=== PATIENT | female | born 1980 | race Caucasian/White ===

== ENCOUNTER 2016-08-20 17:20 | Outpatient (CLI) | payer BC ==
[2016-08-20 19:13] LABS: ALT (SGPT) 11 U/L (0-55); AST (SGOT) 12 U/L (5-34); Alkaline Phosphatase 74 U/L (40-150); Anion Gap 15 mmol/L (10-20); BUN (Urea Nitrogen) 10 mg/dL (7.0-18.7); Bilirubin, Total 0.3 mg/dL (0.2-1.2); Calc. Creatinine Clearance 0 mL/min (70-130); Carbon Dioxide 23 mmol/L (22-29); Chloride 106 mmol/L (98-107); Estimated GFR-MDRD 88; Globulin 2.8 g/dL (2.4-3.5); Protein, Total 7.1 g/dL (6.0-8.3)
[2016-08-20 19:36] LABS: #Basophils 0.1 thou/uL (0.0-0.2); #Eosinphils 0.2 thou/uL (0.0-0.7); #Lymphocytes 2.1 thou/uL (1.20-3.40); #Monocytes 0.6 thou/uL (0.11-0.59); #Neutrophils 4.7 thou/uL (1.40-6.50); %Basophils 1.4 % (0.0-1.0); %Eosinophils 2.2 % (0.0-10.0); %Lymphocytes 26.6 % (21.0-51.0); %Monocytes 8.2 % (0.0-10.0); Mean Platelet Volume 7.9 fL (7.4-10.4); Red Blood Cell (RBC) Count 4.93 mill/uL (4.20-5.40); White Blood Cell (WBC) Count 7.7 thou/uL (4.8-10.8)
[2016-08-20 19:47] LABS: Hemoglobin A1c 5.4 % (4.0-6.0)
== END 2016-08-20 17:21 | disposition home or self-care (01) ==
LOC: NAV SJFMSP 17:20
PROVIDERS: ATTEND Family Medicine
DX: R11.0 Nausea (principal); R51 Headache; R55 Syncope and collapse; R53.83 Other fatigue; R68.89 Other general symptoms and signs; Z98.84 Bariatric surgery status
CPT/HCPCS: 80053; 82306; 82607; 82746; 83036; 84439; 84443; 84702; 85025

== ENCOUNTER 2017-01-12 12:57 | Outpatient (CLI) | payer BC ==
--- NOTE | 2017-01-12 14:11 | ULT ---
PELVIC ULTRASOUND WITH DOPPLER: (TRANSABDOMINAL, TRANSVAGINAL, TRUJILLO SCALE, COLOR FLOW, AND SPECTRAL DOPPLER) DATE: 01/12/17 HISTORY: Left lower quadrant pain. FINDINGS: The uterus measures 12.7 x 4.0 x 5.7 cm without focal mass or endometrial fluid. The endometrium caitlyn sures 4.0 mm in thickness. No uterine mass or endometrial fluid is seen. The right ovary measures 3.2 x 1.8 x 2.8 cm. The left ovary measures 3.0 x 1.6 x 2.7 cm. There is a 9.0 mm cyst in the left ovary. Flow is not detected to the right ovary. Small amount of flow is dete cted to the left ovary. This is secondary to positioning and the large body habitus of the patient. No free fluid is seen in the cul-de-sac. IMPRESSION: No significant abnormalities are seen. POS: PHYLICIA
== END 2017-01-12 12:58 | disposition home or self-care (01) ==
LOC: NAV ULT 12:57
PROVIDERS: ATTEND Family Medicine
DX: R10.32 Left lower quadrant pain (principal)
CPT/HCPCS: 76856

== ENCOUNTER 2021-08-30 18:21 | Emergency (ER) | payer BC ==
[2021-08-30 18:54] LABS: #Basophils 0.1 thou/uL (0.0-0.2); #Eosinphils 0.1 thou/uL (0.0-0.7); #Lymphocytes 2.4 thou/uL (1.20-3.40); #Monocytes 0.7 thou/uL (0.11-0.59); #Neutrophils 5.1 thou/uL (1.40-6.50); %Basophils 0.9 % (0.0-1.0); %Eosinophils 1.1 % (0.0-10.0); %Lymphocytes 28.9 % (21.0-51.0); %Monocytes 8.7 % (0.0-10.0); %Neutrophils 60.5 % (42.0-75.0); Hemoglobin 16.3 g/dL (12.0-16.0); Mean Corpuscular HGB CONC 29.3 g/dL (32.0-36.0); Mean Corpuscular Hemoglobin 25.2 pg (27.0-31.0); Mean Corpuscular Volume 86.1 fL (78.0-98.0); Platelet Count 208 thou/uL (130-400); RBC Distribution Width 16.9 % (11.5-14.5); Red Blood Cell (RBC) Count 6.46 mill/uL (4.20-5.40); White Blood Cell (WBC) Count 8.4 thou/uL (4.8-10.8)
[2021-08-30 19:11] LABS: ALT (SGPT) 26 U/L (8-55); AST (SGOT) 48 U/L (5-34); Acetaminophen Less than 6.0 mcg/mL (10.0-30.0); Albumin 4.1 g/dL (3.5-5.0); Alcohol Less than 10 mg/dL (Less than 10); Alkaline Phosphatase 64 U/L (40-110); BUN (Urea Nitrogen) 9 mg/dL (7.0-18.7); Bilirubin, Total 0.5 mg/dL (0.2-1.2); Calc. Creatinine Clearance 0 mL/min (70-130); Carbon Dioxide 23 mmol/L (22-29); Globulin 3.1 g/dL (2.4-3.5); Glucose 113 mg/dL (70-105); Protein, Total 7.2 g/dL (6.0-8.3); Salicylate Less than 8.0 mg/dL (15.0-30.0)
[2021-08-30 19:50] LABS: Bilirubin Small (Negative); Blood, Urine Small (Negative); Glucose, Urine (Dipstick) Negative (Negative); Ketone, Urine 15 mg/dL (Negative); Leukocyte Negative (Negative); Nitrite Negative (Negative); Protein, Urine (Dipstick) 30 mg/dL (Neg-Trace); Urobilinogen 0.2 mg/dL (Less than 2); pH, Urine 5.5 (5.0-9.0)
[2021-08-30 19:57] LABS: Clarity HAZY (Clear)
[2021-08-30 19:58] LABS: Specific Gravity, Urine 1.028 (1.002-1.036)
[2021-08-30 20:00] LABS: RBC/HPF None Seen HPF (0-3); Squamous Epithelial 0-3 HPF (0-3); WBC/HPF 0-3 HPF (0-3)
[2021-08-30 20:01] LABS: Amphetamine Not Detected (NotDetected); Barbiturates Screen Not Detected (NotDetected); Benzodiazepine Screen Detected (NotDetected); Cocaine Metabolite Screen Not Detected (NotDetected); Medtox Control Line Valid? VALID (VALID); Methadone Not Detected (NotDetected); Methamphetamine Not Detected (NotDetected); Opiate Screen Detected (NotDetected); Oxycodone Screen Not Detected (NotDetected); Phencyclidine (PCP) Not Detected (NotDetected); Pregnancy Test - Urine (BHCG) Negative (Negative); Pregu Control Background? CLEAR/WHITE (CLR/WHITE); Pregu Control Bar Appear? YES (CONTROL BAR); Specific Gravity 1.028 (1.002-1.036); THC/Cannabinoid Screen Not Detected (NotDetected); Tricyclic Screen Not Detected (NotDetected)
[2021-08-30 22:42] LABS: Acetaminophen Less than 6.0 mcg/mL (10.0-30.0); Alcohol Less than 10 mg/dL (Less than 10); Salicylate Less than 8.0 mg/dL (15.0-30.0)
[2021-08-30 23:12] LABS: Acetaminophen Less than 6.0 mcg/mL (10.0-30.0); Alcohol Less than 10 mg/dL (Less than 10); Salicylate Less than 8.0 mg/dL (15.0-30.0)
[2021-08-30] MEDS ORDERED: Ondansetron PF 4 MG/2 ML Vial ONE (23:28)
[2021-08-30 23:40] LABS: Anion Gap 22 mmol/L (10-20)
[2021-08-31 00:17] LABS: Chloride 107 mmol/L (98-107); Potassium 3.6 mmol/L (3.5-5.1); Sodium 142 mmol/L (136-145)
== END 2021-08-31 03:25 | disposition home or self-care (01) ==
LOC: NAV ERS 18:21
DX: T40.422A Poisoning by tramadol, intentional self-harm, initial encounter (principal); G47.00 Insomnia, unspecified; R11.0 Nausea
CPT/HCPCS: 51701; 80053; 80306; 80307; 81003; 81015; 81025; 85025; 96374; J2405